=== PATIENT | female | born 1950 | race Caucasian/White ===

== ENCOUNTER 2019-09-20 09:34 | Emergency (ER) | payer MEDICARE ==
[2019-09-20] MEDS ORDERED: Sodium Chloride 0.9% 500 ML IV ONE (09:56)
[2019-09-20] MEDS ORDERED: Ondansetron 4 MG Tab.DIS PO ONE (09:56)
[2019-09-20] MEDS ORDERED: Ondansetron 4 MG/2 ML SDV IVPUSH ONE (09:59)
--- NOTE | 2019-09-20 10:02 | EDM.PDOC ---
<Deysi Fam - Last Filed: 09/20/19 12:48> ED HPI GENERAL MEDICAL PROBLEM - General Chief Complaint: Flank Pain Stated Complaint: ABD PAIN Time Seen by Provider: 09/20/19 09:57 - History of Present Illness INITIAL COMMENTS - FREE TEXT/NARRATIVE: Patient scheduled for follow up with Dr. Cui tomorrow at 1:45pm. - Related Data Allergies Allergy/AdvReac Type Severity Reaction Status Date / Time codeine Allergy Rash Verified 09/20/19 09:45 diphenhydramine Allergy Other Verified 09/20/19 09:45 [From Benadryl] Home Meds: Home Meds Aspirin [Adult Low Dose Aspirin EC] 81 mg PO DAILY 09/20/19 [History] Cholecalciferol (Vitamin D3) [Vitamin D3] 5,000 unit PO DAILY 09/20/19 [History] Ciprofloxacin HCl [Cipro] 500 mg PO BID 7 Days #14 tablet 09/20/19 [Rx] FLUoxetine HCl [Fluoxetine HCl] 20 mg PO DAILY 09/20/19 [History] Levothyroxine Sodium [Synthroid] 50 mcg PO ACBREAKFAST 09/20/19 [History] Lisinopril 5 mg PO DAILY 09/20/19 [History] [place]-3S/DHA/Epa/Fish Oil [[place] Power 1,050 mg Softgel] 1,600 mg PO DAILY 09/20 [History] Ondansetron [Zofran ODT] 4 mg PO Q6H PRN 2 Days #8 tab.dis 09/20/19 [Rx] ED EXAM, GI/ABD - Physical Exam Exam: See Below (see dictation) Course - Vital Signs Last Recorded V/S: Last Vital Signs Temp 98.5 F 09/20/19 13:05 Pulse 71 09/20/19 13:05 Resp 18 09/20/19 13:05 BP 171/115 H 09/20/19 13:05 Pulse Ox 94 L 09/20/19 13:05 - Orders/Labs/Meds Labs: Laboratory Tests 09/20/19 09/20/19 09/20/19 Range/Units 10:10 10:11 10:11 WBC 12.64 H (4.0-11.0) K/uL RBC 5.14 (4.30-5.90) M/uL Hgb 16.1 H (12.0-16.0) g/dL Hct 46.6 H (36.0-46.0) % MCV 90.7 (80.0-98.0) fL MCH 31.3 (27.0-32.0) pg MCHC 34.5 (31.0-37.0) g/dL RDW Std Deviation 41.9 (28.0-62.0) fl RDW Coeff of Anson 13 (11.0-15.0) % Plt Count 279 (150-400) K/uL MPV 11.60 (7.40-12.00) fL Neut % (Auto) 88.6 H (48.0-80.0) % Lymph % (Auto) 6.7 L (16.0-40.0) % Lea % (Auto) 4.5 (0.0-15.0) % Eos % (Auto) 0.0 (0.0-7.0) % Baso % (Auto) 0.2 (0.0-1.5) % Neut # (Auto) 11.2 H (1.4-5.7) K/uL Lymph # (Auto) 0.9 (0.6-2.4) K/uL Lea # (Auto) 0.6 (0.0-0.8) K/uL Eos # (Auto) 0.0 (0.0-0.7) K/uL Baso # (Auto) 0.0 (0.0-0.1) K/uL Nucleated RBC % 0.0 /100WBC Nucleated RBCs # 0 K/uL Sodium 134 L (136-145) mmol/L Potassium 3.8 (3.5-5.1) mmol/L Chloride 96 L (98-107) mmol/L Carbon Dioxide 23.5 (21.0-32.0) mmol/L BUN 12 (7.0-18.0) mg/dL Creatinine 1.3 H (0.6-1.0) mg/dL Est Cr Clr Drug Dosing 41.40 mL/min Estimated GFR (MDRD) 41.0 ml/min Glucose 166 H (74-106) mg/dL Calcium 9.4 (8.5-10.1) mg/dL Total Bilirubin 0.8 (0.2-1.0) mg/dL AST 30 (15-37) IU/L ALT 37 (14-63) IU/L Alkaline Phosphatase 81 (46-116) U/L Total Protein 8.1 (6.4-8.2) g/dL Albumin 4.3 (3.4-5.0) g/dL Globulin 3.8 (2.6-4.0) g/dL Albumin/Globulin Ratio 1.1 (0.9-1.6) Lipase (73-393) U/L Urine Color DARK YELLOW Urine Appearance SLT CLOUDY Urine pH 5.5 (5.0-8.0) Ur Specific Maddock >= 1.030 (1.001-1.035) Urine Protein 100 H (NEGATIVE) mg/dL Urine Glucose (UA) NEGATIVE (NEGATIVE) mg/dL Urine Ketones 15 H (NEGATIVE) mg/dL Urine Occult Blood LARGE H (NEGATIVE) Urine Nitrite NEGATIVE (NEGATIVE) Urine Bilirubin SMALL H (NEGATIVE) Urine Ictotest NEGATIVE Urine Urobilinogen 0.2 (<2.0) EU/dL Ur Leukocyte Esterase NEGATIVE (NEGATIVE) Urine RBC 100-120 (0-2/HPF) Urine WBC 0-3 (0-5/HPF) Ur Epithelial Cells OCCASIONAL (NONE-FEW) Urine Bacteria FEW (NEGATIVE) 09/20/19 Range/Units 10:11 WBC (4.0-11.0) K/uL RBC (4.30-5.90) M/uL Hgb (12.0-16.0) g/dL Hct (36.0-46.0) % MCV (80.0-98.0) fL MCH (27.0-32.0) pg MCHC (31.0-37.0) g/dL RDW Std Deviation (28.0-62.0) fl RDW Coeff of Anson (11.0-15.0) % Plt Count (150-400) K/uL MPV (7.40-12.00) fL Neut % (Auto) (48.0-80.0) % Lymph % (Auto) (16.0-40.0) % Lea % (Auto) (0.0-15.0) % Eos % (Auto) (0.0-7.0) % Baso % (Auto) (0.0-1.5) % Neut # (Auto) (1.4-5.7) K/uL Lymph # (Auto) (0.6-2.4) K/uL Lea # (Auto) (0.0-0.8) K/uL Eos # (Auto) (0.0-0.7) K/uL Baso # (Auto) (0.0-0.1) K/uL Nucleated RBC % /100WBC Nucleated RBCs # K/uL Sodium (136-145) mmol/L Potassium (3.5-5.1) mmol/L Chloride (98-107) mmol/L Carbon Dioxide (21.0-32.0) mmol/L BUN (7.0-18.0) mg/dL Creatinine (0.6-1.0) mg/dL Est Cr Clr Drug Dosing mL/min Estimated GFR (MDRD) ml/min Glucose (74-106) mg/dL Calcium (8.5-10.1) mg/dL Total Bilirubin (0.2-1.0) mg/dL AST (15-37) IU/L ALT (14-63) IU/L Alkaline Phosphatase (46-116) U/L Total Protein (6.4-8.2) g/dL Albumin (3.4-5.0) g/dL Globulin (2.6-4.0) g/dL Albumin/Globulin Ratio (0.9-1.6) Lipase 389 (73-393) U/L Urine Color Urine Appearance Urine pH (5.0-8.0) Ur Specific Maddock (1.001-1.035) Urine Protein (NEGATIVE) mg/dL Urine Glucose (UA) (NEGATIVE) mg/dL Urine Ketones (NEGATIVE) mg/dL Urine Occult Blood (NEGATIVE) Urine Nitrite (NEGATIVE) Urine Bilirubin (NEGATIVE) Urine Ictotest Urine Urobilinogen (<2.0) EU/dL Ur Leukocyte Esterase (NEGATIVE) Urine RBC (0-2/HPF) Urine WBC (0-5/HPF) Ur Epithelial Cells (NONE-FEW) Urine Bacteria (NEGATIVE) Meds: Medications Discontinued Medications Generic Name Dose Route Start Last Admin Trade Name Freq PRN Reason Stop Dose Admin Ceftriaxone Sodium 1 gm 09/20/19 11:36 09/20/19 12:00 Rocephin IM 09/20/19 11:37 Not Given ONETIME ONE Ciprofloxacin 500 mg 09/20/19 11:36 09/20/19 12:09 Ciprofloxacin Hcl PO 09/20/19 11:37 500 mg ONETIME ONE Administration Sodium Chloride 500 mls @ 999 mls/hr 09/20/19 09:56 09/20/19 10:18 Normal Saline IV 09/20/19 10:26 Not Given STAT ONE Sodium Chloride 500 mls @ 999 mls/hr 09/20/19 10:30 09/20/19 10:18 Normal Saline IV 999 mls/hr .BOLUS COLLETTE Administration Ceftriaxone Sodium/Dextrose 1 50 mls @ 100 mls/hr 09/20/19 12:00 09/20/19 12: 09 gm/ Premix IV 09/20/19 12:29 100 mls/hr ONETIME ONE Administration Ondansetron HCl 4 mg 09/20/19 09:56 09/20/19 10:13 Zofran Odt PO 09/20/19 09:57 Not Given ONETIME ONE Ondansetron HCl 4 mg 09/20/19 09:59 09/20/19 10:17 Zofran IVPUSH 09/20/19 10:00 4 mg ONETIME ONE Administration Departure - Departure Time of Disposition: 12:48 Disposition: Home, Self-Care 01 Condition: Good Clinical Impression: Nephrolithiasis - Discharge Information Prescriptions: Ciprofloxacin HCl [Cipro] 500 mg PO BID 7 Days #14 tablet Ondansetron [Zofran ODT] 4 mg PO Q6H PRN 2 Days #8 tab.dis PRN Reason: Nausea Instructions: Kidney Stones, [id number], Urinary Tract Infection, Adult Referrals: PCP,None [Primary Care Provider] - Eugenio Cui MD [Physician] - 1 Day (Please keep follow up appointment tomorrow at 1:45pm. Arrive 15 minutes early to get checked in) Forms: ED Department Discharge Additional Instructions: The following information is given to patients seen in the emergency department who are being discharged to home. This information is to outline your options for follow-up care. We provide all patients seen in our emergency department with a follow-up referral. The need for follow-up, as well as the timing and circumstances, are variable depending upon the specifics of your emergency department visit. If you don't have a primary care physician on staff, we will provide you with a referral. We always advise you to contact your personal physician following an emergency department visit to inform them of the circumstance of the visit and for follow-up with them and/or the need for any referrals to a consulting specialist. The emergency department will also refer you to a specialist when appropriate. This referral assures that you have the opportunity for follow-up care with a specialist. All of these measure are taken in an effort to provide you with optimal care, which includes your follow-up. Under all circumstances we always encourage you to contact your private physician who remains a resource for coordinating your care. When calling for follow-up care, please make the office aware that this follow-up is from your recent emergency room visit. If for any reason you are refused follow-up, please contact the [facility] Emergency Department at and asked to speak to the emergency department charge nurse. [facility] - Urology [address] [place] [id number] Drink plenty of fluids as instructed Follow up with Dr. Cui tomorrow Return to ED as needed as discussed <Andrzejdevontealonso,Tiffany - Last Filed: 09/20/19 13:33> ED HPI GENERAL MEDICAL PROBLEM - General Source of Information: Reports: Patient History Limitations: Reports: No Limitations - History of Present Illness INITIAL COMMENTS - FREE TEXT/NARRATIVE: patient is a 68 y/o female w/ PMH of HTN, depression, s/p cholecystectomy and appendectomy; presenting w./ nausea, bilious vomiting and LLQ pain since last night. States the pain in her abdomen is better now but was a 6/10 last night. Denies any fevers but does endorse chills. Denies loss of appetite or diarrhea or constipation. Does endorse a history of pancreatitis as complication of gallbladder surgery. Mentions 1-2 episodes of dysuria and urinary frequency last night w/ no hematuria or discharge. Denies any flank pain, but did have a brief episode of pain in back in which she could not find a comfortable position to alleviate pain. This had resolved however 2-3 hours later. left flank Pain Score (Numeric/FACES): 8 Past Medical History - Past Health History Medical/Surgical History: Denies Medical/Surgical History Cardiovascular History: Reports: Hypertension [employer] History: Reports: Endocrine/Metabolic History: Reports: Hypothyroidism - Past Surgical History HEENT Surgical History: Reports: Adenoidectomy, Tonsillectomy GI Surgical History: Reports: Appendectomy, Cholecystectomy, Colonoscopy, EGD Female Surgical History: Reports: Tubal Ligation Social & Family History - Family History Family Medical History: Noncontributory - Tobacco Use Smoking Status *Q: Never Smoker - Recreational Drug Use Recreational Drug Use: No ED ROS GENERAL - Review of Systems Review Of Systems: See Below Constitutional: Reports: Chills. Denies: Fever, Weakness, Fatigue HEENT: Reports: No Symptoms Respiratory: Reports: No Symptoms Cardiovascular: Reports: No Symptoms GI/Abdominal: Reports: Abdominal Pain, Nausea, Vomiting. Denies: Constipation, Diarrhea, Decreased Appetite : Reports: Dysuria, Frequency. Denies: Discharge, Flank Pain, Hematuria, Pain Musculoskeletal: Reports: No Symptoms, Back Pain Neurological: Reports: No Symptoms Psychiatric: Reports: No Symptoms ED EXAM, GI/ABD - Physical Exam Exam: See Below Exam Limited By: No Limitations General Appearance: Alert, No Apparent Distress Throat/Mouth: Normal Oropharynx Head: Atraumatic, Normocephalic Respiratory/Chest: No Respiratory Distress, Normal Breath Sounds Cardiovascular: Normal Peripheral Pulses, Regular Rate, Rhythm GI/Abdominal Exam: Soft, Non-Tender, No Organomegaly, Other (minimal flank tendernes on left. normal BS. ) Back Exam: Normal Inspection Neurological: Alert, Oriented Skin Exam: Warm, Dry Course - Vital Signs Text/Narrative:: CBC,CMP,lipase and UA ordered. NS 500 cc bolus initiated. Zofran IV administered. CT abdomen/pelvis w/o contrast (secondary to low GFR) ordered secondary to b/l flank pain, dysuria and subjective chills. IV Rocephin and PO Cipro given (CrCl >40) - Orders/Labs/Meds Labs: Laboratory Tests 09/20/19 09/20/19 09/20/19 Range/Units 10:10 10:11 10:11 WBC 12.64 H (4.0-11.0) K/uL RBC 5.14 (4.30-5.90) M/uL Hgb 16.1 H (12.0-16.0) g/dL Hct 46.6 H (36.0-46.0) % MCV 90.7 (80.0-98.0) fL MCH 31.3 (27.0-32.0) pg MCHC 34.5 (31.0-37.0) g/dL RDW Std Deviation 41.9 (28.0-62.0) fl RDW Coeff of Anson 13 (11.0-15.0) % Plt Count 279 (150-400) K/uL MPV 11.60 (7.40-12.00) fL Neut % (Auto) 88.6 H (48.0-80.0) % Lymph % (Auto) 6.7 L (16.0-40.0) % Lea % (Auto) 4.5 (0.0-15.0) % Eos % (Auto) 0.0 (0.0-7.0) % Baso % (Auto) 0.2 (0.0-1.5) % Neut # (Auto) 11.2 H (1.4-5.7) K/uL Lymph # (Auto) 0.9 (0.6-2.4) K/uL Lea # (Auto) 0.6 (0.0-0.8) K/uL Eos # (Auto) 0.0 (0.0-0.7) K/uL Baso # (Auto) 0.0 (0.0-0.1) K/uL Nucleated RBC % 0.0 /100WBC Nucleated RBCs # 0 K/uL Sodium 134 L (136-145) mmol/L Potassium 3.8 (3.5-5.1) mmol/L Chloride 96 L (98-107) mmol/L Carbon Dioxide 23.5 (21.0-32.0) mmol/L BUN 12 (7.0-18.0) mg/dL Creatinine 1.3 H (0.6-1.0) mg/dL Est Cr Clr Drug Dosing 41.40 mL/min Estimated GFR (MDRD) 41.0 ml/min Glucose 166 H (74-106) mg/dL Calcium 9.4 (8.5-10.1) mg/dL Total Bilirubin 0.8 (0.2-1.0) mg/dL AST 30 (15-37) IU/L ALT 37 (14-63) IU/L Alkaline Phosphatase 81 (46-116) U/L Total Protein 8.1 (6.4-8.2) g/dL Albumin 4.3 (3.4-5.0) g/dL Globulin 3.8 (2.6-4.0) g/dL Albumin/Globulin Ratio 1.1 (0.9-1.6) Lipase (73-393) U/L Urine Color DARK YELLOW Urine Appearance SLT CLOUDY Urine pH 5.5 (5.0-8.0) Ur Specific Maddock >= 1.030 (1.001-1.035) Urine Protein 100 H (NEGATIVE) mg/dL Urine Glucose (UA) NEGATIVE (NEGATIVE) mg/dL Urine Ketones 15 H (NEGATIVE) mg/dL Urine Occult Blood LARGE H (NEGATIVE) Urine Nitrite NEGATIVE (NEGATIVE) Urine Bilirubin SMALL H (NEGATIVE) Urine Ictotest NEGATIVE Urine Urobilinogen 0.2 (<2.0) EU/dL Ur Leukocyte Esterase NEGATIVE (NEGATIVE) Urine RBC 100-120 (0-2/HPF) Urine WBC 0-3 (0-5/HPF) Ur Epithelial Cells OCCASIONAL (NONE-FEW) Urine Bacteria FEW (NEGATIVE) 09/20/19 Range/Units 10:11 WBC (4.0-11.0) K/uL RBC (4.30-5.90) M/uL Hgb (12.0-16.0) g/dL Hct (36.0-46.0) % MCV (80.0-98.0) fL MCH (27.0-32.0) pg MCHC (31.0-37.0) g/dL RDW Std Deviation (28.0-62.0) fl RDW Coeff of Anson (11.0-15.0) % Plt Count (150-400) K/uL MPV (7.40-12.00) fL Neut % (Auto) (48.0-80.0) % Lymph % (Auto) (16.0-40.0) % Lea % (Auto) (0.0-15.0) % Eos % (Auto) (0.0-7.0) % Baso % (Auto) (0.0-1.5) % Neut # (Auto) (1.4-5.7) K/uL Lymph # (Auto) (0.6-2.4) K/uL Lea # (Auto) (0.0-0.8) K/uL Eos # (Auto) (0.0-0.7) K/uL Baso # (Auto) (0.0-0.1) K/uL Nucleated RBC % /100WBC Nucleated RBCs # K/uL Sodium (136-145) mmol/L Potassium (3.5-5.1) mmol/L Chloride (98-107) mmol/L Carbon Dioxide (21.0-32.0) mmol/L BUN (7.0-18.0) mg/dL Creatinine (0.6-1.0) mg/dL Est Cr Clr Drug Dosing mL/min Estimated GFR (MDRD) ml/min Glucose (74-106) mg/dL Calcium (8.5-10.1) mg/dL Total Bilirubin (0.2-1.0) mg/dL AST (15-37) IU/L ALT (14-63) IU/L Alkaline Phosphatase (46-116) U/L Total Protein (6.4-8.2) g/dL Albumin (3.4-5.0) g/dL Globulin (2.6-4.0) g/dL Albumin/Globulin Ratio (0.9-1.6) Lipase 389 (73-393) U/L Urine Color Urine Appearance Urine pH (5.0-8.0) Ur Specific Maddock (1.001-1.035) Urine Protein (NEGATIVE) mg/dL Urine Glucose (UA) (NEGATIVE) mg/dL Urine Ketones (NEGATIVE) mg/dL Urine Occult Blood (NEGATIVE) Urine Nitrite (NEGATIVE) Urine Bilirubin (NEGATIVE) Urine Ictotest Urine Urobilinogen (<2.0) EU/dL Ur Leukocyte Esterase (NEGATIVE) Urine RBC (0-2/HPF) Urine WBC (0-5/HPF) Ur Epithelial Cells (NONE-FEW) Urine Bacteria (NEGATIVE) - Assessment/Plan Assessment:: Assessment: 1.Acute complicated UTI 2. Elevated BP w/ hx. of HN Plan: 1. Cipro 500 mg BID x 7-days 2. Zofran 4mg PRN Nausea 3. Advised to Return if fever develops, worsening abdominal pain, chills or nausea/vomiting prevents adequate hydration patient care transferred to ER provider Sarwat Jo at 12:10 pm.
[2019-09-20] MEDS ORDERED: Sodium Chloride 0.9% 500 ML IV SCH (10:30)
[2019-09-20 10:45] LABS: CARBON DIOXIDE,CO2 23.5 mmol/L (21.0-32.0); POTASSIUM,K 3.8 mmol/L (3.5-5.1)
[2019-09-20] MEDS ORDERED: cefTRIAXone 1 GM Vial IM ONE (11:36)
[2019-09-20] MEDS ORDERED: Ciprofloxacin 500 MG Tab PO ONE (11:36)
[2019-09-20] MEDS ORDERED: cefTRIAXone 1 GM in Premix Bag 1 BAG IV ONE (12:00)
--- NOTE | 2019-09-20 12:43 | CT ---
CT abdomen and pelvis Technique: Multiple axial sections were obtained from above the dome of the diaphragm inferiorly through the pubic symphysis. Intravenous and oral contrast not utilized. Comparison: No prior abdominal imaging. Findings: Left ureter is mildly prominent. This occurs down to the UVJ. There is a small calcification being seen at the UVJ which is close to passing into the bladder. This calcification measures about 2 mm to 3 mm in size. No other abnormal calcifications are seen along the course of the ureters. Small nonobstructing stone is noted within the mid to upper right kidney measuring about 2 mm in size. No other abnormal calcifications are seen along the course of the ureters. Visualized lung bases show nothing acute. Noncontrast appearance of the liver shows no focal abnormality. Surgical clips are seen from prior cholecystectomy. Small hiatal hernia is noted. Spleen appears within normal limits. Aorta shows atherosclerotic change without aneurysm. No retroperitoneal adenopathy or mesenteric abnormalities are seen. No pelvic mass or adenopathy is seen. Bone window settings were reviewed which shows mild degenerative change primarily at L4-L5. Impression: 1. Slightly dilated left ureter. This is caused by a 2-3 mm obstructing stone located at the UVJ close to passing into the bladder. 2. A 2 mm nonobstructing stone within the right kidney. 3. No additional abnormality is appreciated. Diagnostic code #3 MTDD
== END 2019-09-20 13:05 | disposition home or self-care (01) ==
LOC: MW.ED 09:34
DX: N20.2 Calculus of kidney with calculus of ureter (principal); E03.9 Hypothyroidism, unspecified; I10 Essential (primary) hypertension; Z88.8 Allergy status to other drugs, medicaments and biological substances; Z88.5 Allergy status to narcotic agent; Z79.899 Other long term (current) drug therapy; Z79.82 Long term (current) use of aspirin
CPT/HCPCS: 36415; 74176; 80053; 81001; 83690; 85025; 96365; 96375; 99284; A9270; J0696; J2405; J7040